=== PATIENT | female | born 1970 | race Hispanic/Latino ===

== ENCOUNTER 2017-11-09 22:50 | Emergency (ER) | payer MEDICAID, OTHER ==
[2017-11-09] MEDS ORDERED: IPRATROPIUM/ALBUTEROL SULFATE 3 ML SOLUTION IH ONE (23:03)
[2017-11-09] MEDS ORDERED: ALBUTEROL SULFATE 0.083% 2.5 MG/3 ML INH IH ONE (23:10)
[2017-11-09] MEDS ORDERED: METHYLPREDNISOLONE SOD SUCC 125MG/2ML VIAL ONE (23:16)
[2017-11-09] MEDS ORDERED: MAGNESIUM HYDROXIDE 30 ML/UDCUP ONE (23:17)
[2017-11-09] MEDS ORDERED: LIDOCAINE HCL 2% VISCOUS 15 ML UDCUP ONE (23:17)
[2017-11-09] MEDS ORDERED: ONDANSETRON ODT 4 MG TAB ONE (23:34)
[2017-11-09 23:42] LABS: BASOPHILS % (AUTO) 1.1 % (0.0-5.0); EOSINOPHILS % (AUTO) 3.8 % (0.0-8.0); HEMATOCRIT 40.7 % (36-48); LYMPHOCYTES % (AUTO) 32.5 % (21.0-51.0); MEAN CORPUSCULAR HEMOGLOBIN 23.9 pg (27.0-33.0); MEAN CORPUSCULAR HGB CONC 31.8 g/dL (32.0-36.0); MONOCYTES % (AUTO) 10.1 % (3.0-13.0); NEUTROPHILS % (AUTO) 52.5 % (40.0-77.0); NUCLEATED RED BLOOD CELLS 0.1 % (0.0-0.19); PLATELET COUNT (AUTO) 384 K/uL (130-400); RED BLOOD CELL COUNT(AUTO) 5.42 MIL/uL (4.00-5.50); RED CELL DISTRIBUTION WIDTH 22.5 % (11.0-15.5); WHITE BLOOD COUNT (AUTO) 8.8 K/uL (4.8-10.8)
[2017-11-10 00:18] LABS: ALBUMIN 3.1 g/dL (3.5-5.0); BILIRUBIN,TOTAL 0.2 mg/dL (0.2-1.0)
[2017-11-10] MEDS ORDERED: POTASSIUM BICARB/CIT AC 25 MEQ TABLET.EFF ONE (00:32)
== END 2017-11-10 01:00 | disposition home or self-care (01) ==
LOC: EDH 22:50
DX: J45.909 Unspecified asthma, uncomplicated (principal); K21.9 Gastro-esophageal reflux disease without esophagitis; K29.70 Gastritis, unspecified, without bleeding; Z72.0 Tobacco use
CPT/HCPCS: 36415; 71045; 80053; 85025; 93005; 94640 ×2; 96374; 99285; J2930

== ENCOUNTER 2018-08-19 14:51 | Emergency (ER) | payer OTHER | END 2018-08-19 15:23 | disposition left against medical advice (07) | LOC: EDH 14:51 | DX: R10.9 Unspecified abdominal pain (principal); Z53.21 Procedure and treatment not carried out due to patient leaving prior to being seen by health care provider; J45.909 Unspecified asthma, uncomplicated; Z72.0 Tobacco use ==

== ENCOUNTER 2018-08-29 18:08 | Emergency (ER) | payer OTHER ==
[~2018-08-29] VITALS: Ht 152.4 cm; Wt 99.8 kg
[2018-08-29] MEDS ORDERED: IPRATROPIUM/ALBUTEROL SULFATE 3 ML SOLUTION IH ONE ×2 (18:20→19:46)
[2018-08-29] MEDS ORDERED: METHYLPREDNISOLONE SOD SUCC 125MG/2ML VIAL ONE (18:44)
[2018-08-29 18:45] LABS: BASOPHILS % (AUTO) 0.2 % (0.0-5.0); LYMPHOCYTES % (AUTO) 3.6 % (21.0-51.0); MEAN CORPUSCULAR HEMOGLOBIN 26.3 pg (27.0-33.0); MEAN CORPUSCULAR HGB CONC 32.3 g/dL (32.0-36.0); MEAN CORPUSCULAR VOLUME 81.3 fL (79-99); MONOCYTES % (AUTO) 4.5 % (3.0-13.0); NEUTROPHILS % (AUTO) 91.7 % (40.0-77.0); PLATELET COUNT (AUTO) 260 K/uL (130-400); RED BLOOD CELL COUNT(AUTO) 4.92 MIL/uL (4.00-5.50); RED CELL DISTRIBUTION WIDTH 18.8 % (11.0-15.5); WHITE BLOOD COUNT (AUTO) 18.8 K/uL (4.8-10.8)
[2018-08-29] MEDS ORDERED: MAGNESIUM 2GM PREMIX 50ML 50 ML IV ONE (18:45)
[2018-08-29 18:57] LABS: CREATININE 1.3 mg/dL (0.5-1.5); POTASSIUM 3.9 mmol/L (3.5-5.1)
[2018-08-29 19:01] LABS: BILIRUBIN,TOTAL 0.1 mg/dL (0.2-1.0); TOTAL PROTEIN, SERUM 6.5 g/dL (6.0-8.3)
[2018-08-29] MEDS ORDERED: TERBUTALINE SULFATE VIAL 1MG/ML SQ SCH (19:30)
[2018-08-29] MEDS ORDERED: CEFTRIAXONE SODIUM 1 GM ONE (20:08)
== END 2018-08-29 21:41 | disposition home or self-care (01) ==
LOC: EDH 18:08
DX: J45.901 Unspecified asthma with (acute) exacerbation (principal); Z72.0 Tobacco use
CPT/HCPCS: 36415; 71045; 80053; 83735; 85025; 94640 ×2; 96365; 96366; 96372; 96375; 99284; J0696; J2930; J3105; J3475

== ENCOUNTER 2018-10-01 19:14 | Emergency (ER) | payer OTHER ==
[2018-10-01 19:43] LABS: BASOPHILS % (AUTO) 0.7 % (0.0-5.0); EOSINOPHILS % (AUTO) 1.2 % (0.0-8.0); HEMATOCRIT 40.5 % (36-48); LYMPHOCYTES % (AUTO) 17.1 % (21.0-51.0); MEAN CORPUSCULAR HGB CONC 31.9 g/dL (32.0-36.0); MEAN CORPUSCULAR VOLUME 81.4 fL (79-99); MONOCYTES % (AUTO) 5.1 % (3.0-13.0); NEUTROPHILS % (AUTO) 75.9 % (40.0-77.0); PLATELET COUNT (AUTO) 301 K/uL (130-400); RED BLOOD CELL COUNT(AUTO) 4.97 MIL/uL (4.00-5.50); WHITE BLOOD COUNT (AUTO) 17.7 K/uL (4.8-10.8)
[2018-10-01 19:51] LABS: CARBON DIOXIDE 25 mmol/L (21-32); CHLORIDE 103 mmol/L (101-111); CREATININE 0.9 mg/dL (0.5-1.5); GLOMERULAR FILTR. RATE CALC 72 mL/min (>60); GLUCOSE,RANDOM 140 mg/dL (70-105); POTASSIUM 3.4 mmol/L (3.5-5.1); SODIUM SERUM 138 mmol/L (136-145); UREA NITROGEN, BLOOD 12 mg/dL (7-18)
[2018-10-01 19:57] LABS: INR 0.96 (0.85-1.15); PARTIAL THROMBOPLASTIN TIME 23.8 SEC (26.3-35.5); PROTHROMBIN TIME 10.1 SEC (9.6-11.6)
[2018-10-01] MEDS ORDERED: IPRATROPIUM/ALBUTEROL SULFATE 3 ML SOLUTION IH ONE (19:59)
[2018-10-01 20:02] LABS: ALANINE AMINOTRANSFERASE 28 U/L (12-78); ALBUMIN 3.1 g/dL (3.5-5.0); ASPARTATE AMINOTRANSFERASE 24 U/L (10-37); BILIRUBIN,TOTAL 0.3 mg/dL (0.2-1.0); CREATINE KINASE, TOTAL 131 U/L (21-232); MYOGLOBIN 35 ng/mL (10-92); TOTAL PROTEIN, SERUM 6.8 g/dL (6.0-8.3); TROPONIN I < 0.04 ng/mL (0.00-0.06)
[2018-10-01 20:12] LABS: RAPID GROUP A STREP NEGATIVE (NEGATIVE)
[2018-10-01 20:44] LABS: APPEARANCE,URINE Cloudy (CLEAR); BILIRUBIN,URINE Negative (NEGATIVE); COLOR,URINE Yellow (YELLOW); GLUCOSE, URINE (UA) Negative (NEGATIVE); KETONES,URINE Negative (NEGATIVE); LEUKOCYTE ESTERASE ,URINE Large (NEGATIVE); NITRATE,URINE Positive (NEGATIVE); OCCULT BLOOD,URINE Trace (NEGATIVE); PH,URINE 7.5 (5.0-8.0); PROTEIN,URINE Negative (NEGATIVE)
[2018-10-01 20:52] LABS: BACTERIA,URINE Few /HPF (None Seen); MUCUS,URINE Rare LPF (None Seen); SQUAMOUS EPITHELIAL CELL,UR Few /HPF (0-2)
[2018-10-01 20:55] LABS: AMORPHOUS SEDIMENT,UR Rare /LPF (None Seen)
[2018-10-01] MEDS ORDERED: KETOROLAC TROMETHAMINE 30MG/ML ONE (21:02)
[2018-10-01] MEDS ORDERED: ONDANSETRON HCL 4 MG/2 ML VIAL ONE (22:50)
[2018-10-01] MEDS ORDERED: CEFTRIAXONE SODIUM 1 GM ONE (23:02)
[2018-10-01] MEDS ORDERED: MAG HYDROX/AL HYDROX/SIMETH ES 30 ML SUSP UDCUP ONE (23:03)
[2018-10-01] MEDS ORDERED: PANTOPRAZOLE SODIUM 40 MG TABLET.DR PO ONE (23:03)
[2018-10-01] MEDS ORDERED: LIDOCAINE HCL 2% VISCOUS 15 ML UDCUP ONE (23:03)
== END 2018-10-01 23:53 | disposition home or self-care (01) ==
LOC: EDH 19:14
DX: N39.0 Urinary tract infection, site not specified (principal); J45.901 Unspecified asthma with (acute) exacerbation; Z72.0 Tobacco use; Z98.890 Other specified postprocedural states
CPT/HCPCS: 36415; 71045; 74176; 80053; 81001; 82550; 83605 ×2; 83874; 84484; 85025; 85610; 85730; 87040 ×2; 87088; 87804 ×2; 87880; 93005; 94640; 96361 ×2; 96374; 96375; 99285; J0696; J1885; J2405

== ENCOUNTER 2018-11-20 21:57 | Emergency (ER) | payer MEDICAID ==
[2018-11-20] MEDS ORDERED: METHYLPREDNISOLONE SOD SUCC 125MG/2ML VIAL ONE (22:14)
[2018-11-20] MEDS ORDERED: IPRATROPIUM/ALBUTEROL SULFATE 3 ML SOLUTION IH ONE (22:16)
[2018-11-20 22:29] LABS: APPEARANCE,URINE Clear (CLEAR); BILIRUBIN,URINE Negative (NEGATIVE); COLOR,URINE Yellow (YELLOW); GLUCOSE, URINE (UA) Negative (NEGATIVE); KETONES,URINE Negative (NEGATIVE); LEUKOCYTE ESTERASE ,URINE Negative (NEGATIVE); NITRATE,URINE Positive (NEGATIVE); OCCULT BLOOD,URINE Moderate (NEGATIVE); PROTEIN,URINE Negative (NEGATIVE); UROBILINOGEN,URINE 0.2 mg/dL (0.2-1.0)
[2018-11-20] MEDS ORDERED: ONDANSETRON HCL 4 MG/2 ML VIAL ONE (22:35)
[2018-11-20 22:39] LABS: BACTERIA,URINE Many /HPF (None Seen); MUCUS,URINE Few LPF (None Seen); SQUAMOUS EPITHELIAL CELL,UR Moderate /HPF (0-2); WBC,URINE 0-1 /HPF (0-1)
[2018-11-20 22:43] LABS: BASOPHILS % (AUTO) 0.3 % (0.0-5.0); EOSINOPHILS % (AUTO) 0.1 % (0.0-8.0); HEMATOCRIT 44.3 % (36-48); LYMPHOCYTES % (AUTO) 4.5 % (21.0-51.0); MEAN CORPUSCULAR HEMOGLOBIN 25.9 pg (27.0-33.0); MEAN CORPUSCULAR HGB CONC 31.6 g/dL (32.0-36.0); MEAN CORPUSCULAR VOLUME 82.1 fL (79-99); MONOCYTES % (AUTO) 5.7 % (3.0-13.0); NEUTROPHILS % (AUTO) 89.4 % (40.0-77.0); PLATELET COUNT (AUTO) 306 K/uL (130-400); RED CELL DISTRIBUTION WIDTH 18.6 % (11.0-15.5); WHITE BLOOD COUNT (AUTO) 25.2 K/uL (4.8-10.8)
[2018-11-20 22:53] LABS: CREATININE 0.9 mg/dL (0.5-1.5); POTASSIUM 3.9 mmol/L (3.5-5.1)
[2018-11-20 22:57] LABS: ALBUMIN 3.3 g/dL (3.5-5.0); BILIRUBIN,TOTAL 0.3 mg/dL (0.2-1.0); TOTAL PROTEIN, SERUM 7.4 g/dL (6.0-8.3)
[2018-11-21] MEDS ORDERED: LEVOFLOXACIN 500 MG/D5W 100 ML 100 ML ONE (00:09)
[2018-11-21] MEDS ORDERED: KETOROLAC TROMETHAMINE 30MG/ML ONE (00:10)
[2018-11-21] MEDS ORDERED: CEFTRIAXONE SODIUM 1 GM ONE (00:10)
== END 2018-11-21 01:34 | disposition home or self-care (01) ==
LOC: EDH 21:57
DX: J45.21 Mild intermittent asthma with (acute) exacerbation (principal); E11.9 Type 2 diabetes mellitus without complications; N39.0 Urinary tract infection, site not specified; Z98.890 Other specified postprocedural states
CPT/HCPCS: 36415; 80053; 81001; 81025; 82150; 82270; 83630; 83690; 85025; 87046; 87077; 87088; 87177; 87186; 94640; 96365; 96375; 99284; J0696; J1885; J1956; J2405; J2930

== ENCOUNTER 2019-06-27 16:28 | Emergency (ER) | payer MEDICAID ==
[2019-06-27 18:05] LABS: BASOPHILS % (AUTO) 0.4 % (0.0-5.0); EOSINOPHILS % (AUTO) 0.9 % (0.0-8.0); HEMATOCRIT 40.5 % (36-48); LYMPHOCYTES % (AUTO) 10.3 % (21.0-51.0); MEAN CORPUSCULAR HEMOGLOBIN 25.1 pg (27.0-33.0); MEAN CORPUSCULAR HGB CONC 30.1 g/dL (32.0-36.0); MEAN CORPUSCULAR VOLUME 83.2 fL (79-99); NEUTROPHILS % (AUTO) 83.7 % (40.0-77.0); PLATELET COUNT (AUTO) 329 K/uL (130-400); RED BLOOD CELL COUNT(AUTO) 4.87 MIL/uL (4.00-5.50); RED CELL DISTRIBUTION WIDTH 18.8 % (11.0-15.5); WHITE BLOOD COUNT (AUTO) 16.2 K/uL (4.8-10.8)
[2019-06-27 18:09] LABS: APPEARANCE,URINE Cloudy (CLEAR); BILIRUBIN,URINE Negative (NEGATIVE); COLOR,URINE Yellow (YELLOW); GLUCOSE, URINE (UA) Negative (NEGATIVE); KETONES,URINE Trace mg/dL (NEGATIVE); LEUKOCYTE ESTERASE ,URINE Small (NEGATIVE); NITRATE,URINE Negative (NEGATIVE); OCCULT BLOOD,URINE Negative (NEGATIVE); PROTEIN,URINE Negative (NEGATIVE)
[2019-06-27 18:12] LABS: CREATININE 1.1 mg/dL (0.5-1.5); HCG,QUAL RESULT NEGATIVE (NEGATIVE); POTASSIUM 3.7 mmol/L (3.5-5.1)
[2019-06-27 18:15] LABS: INR 0.93 (0.85-1.15); PARTIAL THROMBOPLASTIN TIME 24.7 SEC (26.3-35.5); PROTHROMBIN TIME 9.8 SEC (9.6-11.6)
[2019-06-27 18:17] LABS: BILIRUBIN,TOTAL 0.2 mg/dL (0.2-1.0); TOTAL PROTEIN, SERUM 6.7 g/dL (6.0-8.3)
[2019-06-27 18:25] LABS: BACTERIA,URINE Few /HPF (None Seen)
[2019-06-27 18:26] LABS: MUCUS,URINE Few LPF (None Seen); SQUAMOUS EPITHELIAL CELL,UR Moderate /HPF (0-2)
[2019-06-27] MEDS ORDERED: CEFTRIAXONE SODIUM 1 GM ONE (19:12)
[2019-06-27] MEDS ORDERED: SODIUM CHLORIDE 0.9% 1000ML 1,000 ML IV ONE (19:12)
== END 2019-06-27 19:49 | disposition home or self-care (01) ==
LOC: EDH 16:28
DX: N39.0 Urinary tract infection, site not specified (principal); E86.0 Dehydration; J45.909 Unspecified asthma, uncomplicated; E11.9 Type 2 diabetes mellitus without complications; F41.9 Anxiety disorder, unspecified; Z72.0 Tobacco use
CPT/HCPCS: 36415; 71046; 80053; 81001; 81025; 82948 ×2; 85025; 85610; 85730; 87077; 87088; 87186; 87804 ×2; 96361; 96374; 99285; J0696; J7030

== ENCOUNTER → 2019-07-01 | Outpatient (CLI) | payer OTHER | END | disposition home or self-care (01) | LOC: OIH 14:59 | PROVIDERS: ATTEND Internal Medicine | DX: T14.8XXA Other injury of unspecified body region, initial encounter (principal); X58.XXXA Exposure to other specified factors, initial encounter; Y93.89 Activity, other specified; Y92.89 Other specified places as the place of occurrence of the external cause; Y99.8 Other external cause status | CPT/HCPCS: 72100 ==

== ENCOUNTER 2021-04-12 21:11 | Emergency (ER) | payer MEDICAID, OTHER ==
[~2021-04-12] VITALS: Ht 152.4 cm; Wt 105.7 kg
[2021-04-12 21:13] VITALS: BP 110/71
== END 2021-04-12 22:38 | disposition left against medical advice (07) ==
LOC: EDH 21:11
DX: M54.9 Dorsalgia, unspecified (principal); R06.02 Shortness of breath; R42 Dizziness and giddiness; Z53.21 Procedure and treatment not carried out due to patient leaving prior to being seen by health care provider

== ENCOUNTER 2022-03-12 00:36 | Inpatient (IN) | payer MEDICAID ==
[~2022-03-12] VITALS: Ht 152.4 cm; Wt 116.1 kg
[~2022-03-12 00:36] MED LIST: POTA20TA10 PO
[2022-03-12 01:04] LABS: APPEARANCE,URINE CLEAR (CLEAR); BILIRUBIN,URINE NEGATIVE (NEGATIVE); COLOR,URINE LIGHT-YELLOW (YELLOW); GLUCOSE, URINE (UA) NEGATIVE (NEGATIVE); KETONES,URINE NEGATIVE (NEGATIVE); LEUKOCYTE ESTERASE ,URINE NEGATIVE Leu/uL (NEGATIVE); NITRATE,URINE NEGATIVE (NEGATIVE); OCCULT BLOOD,URINE NEGATIVE (NEGATIVE); PH,URINE 6.5 (5.0-8.0); PROTEIN,URINE NEGATIVE (NEGATIVE); UROBILINOGEN,URINE 0.2 mg/dL (0.2-1.0)
[2022-03-12] MEDS ORDERED: IPRATROPIUM/ALBUTEROL SULFATE 3 ML SOLUTION IH ONE (01:30)
[2022-03-12 01:46] LABS: BASOPHILS % (AUTO) 0.3 % (0.0-5.0); EOSINOPHILS % (AUTO) 0.2 % (0.0-8.0); HEMATOCRIT 45.5 % (36-48); LYMPHOCYTES % (AUTO) 23.1 % (21.0-51.0); MEAN CORPUSCULAR HEMOGLOBIN 29.3 pg (27.0-33.0); MEAN CORPUSCULAR HGB CONC 32.5 g/dL (32.0-36.0); MEAN CORPUSCULAR VOLUME 90.1 fL (79-99); MONOCYTES % (AUTO) 7.8 % (3.0-13.0); NEUTROPHILS % (AUTO) 66.9 % (40.0-77.0); PLATELET COUNT (AUTO) 246 K/uL (130-400); RED BLOOD CELL COUNT(AUTO) 5.05 MIL/uL (4.00-5.50); RED CELL DISTRIBUTION WIDTH 17.6 % (11.0-15.5); WHITE BLOOD COUNT (AUTO) 17.7 K/uL (4.8-10.8)
[2022-03-12 02:01] LABS: CREATININE 1.1 mg/dL (0.5-1.5); POTASSIUM 3.6 mmol/L (3.5-5.1)
[2022-03-12 02:09] LABS: ALBUMIN 3.1 g/dL (3.5-5.0); TOTAL PROTEIN, SERUM 6.6 g/dL (6.0-8.3)
[2022-03-12] MEDS ORDERED: ALBUTEROL 0.083% 2.5 MG/3 ML INH IH ONE (02:30)
[2022-03-12] MEDS ORDERED: 0.9%NACL 1000ML 1,000 ML IV ONE (05:00)
[2022-03-12] MEDS ORDERED: NITROGLYCERIN 0.4 MG SL TAB SL PRN (05:00)
[2022-03-12] MEDS ORDERED: FAMOTIDINE 20MG VIAL IV ONE (05:30)
[2022-03-12] MEDS ORDERED: CEFTRIAXONE 1G VIAL IVP SCH (05:30)
[2022-03-12] MEDS ORDERED: SOLU-MEDROL 125MG VIAL IVP ONE (05:30)
[2022-03-12] MEDS ORDERED: ASPIRIN 81MG CHEW TAB PO ONE (05:30)
[2022-03-12] MEDS ORDERED: MAG/ALUM/SIMETH 30 ML UDCUP PO ONE (05:30)
[2022-03-12] MEDS: IPRATROPIUM/ALBUTEROL SULFATE 3 ML SOLUTION IH SCH ×2 (06:43→11:28)
[2022-03-12] MEDS ORDERED: CLOPIDOGREL 75MG TAB PO SCH (09:00)
[2022-03-12] MEDS ORDERED: ASPIRIN 81 MG EC TAB PO SCH (09:00)
[2022-03-12] MEDS ORDERED: SOLU-MEDROL 40MG VIAL IVP SCH (09:00)
[2022-03-12] MEDS ORDERED: ENOXAPARIN SODIUM 120 MG/0.8ML SQ SCH (09:00)
[2022-03-12 13:18] VITALS: BP 117/77
== END 2022-03-12 14:05 | disposition home or self-care (01) | DRG 140 ==
LOC: EDH 00:36 → EDHIP 00:37
PROVIDERS: ADMIT Internal Medicine; ATTEND Internal Medicine
DX: J44.0 Chronic obstructive pulmonary disease with (acute) lower respiratory infection (principal); J18.9 Pneumonia, unspecified organism; Z20.822 Contact with and (suspected) exposure to COVID-19; J44.1 Chronic obstructive pulmonary disease with (acute) exacerbation; F41.1 Generalized anxiety disorder; F43.10 Post-traumatic stress disorder, unspecified; Z82.49 Family history of ischemic heart disease and other diseases of the circulatory system; Z83.3 Family history of diabetes mellitus
CPT/HCPCS: 36415; 71045; 80053; 81003; 82550; 83605; 83874; 83880; 84484; 85025; 87040; 87635; 87804; 93005; 94640; 94644; 94664; C9803; G0378; J0696; J1650; J2920; J2930; J3490

== ENCOUNTER 2023-05-09 13:31 | Emergency (ER) | payer BC, MEDICAID ==
[~2023-05-09] VITALS: Ht 152.4 cm; Wt 99.8 kg
[2023-05-09 14:05] VITALS: BP 101/71; PULSE 98; RESP 18; O2SAT 98
[2023-05-09 14:11] LABS: HEMATOCRIT 50.1 % (36-48); MEAN CORPUSCULAR HEMOGLOBIN 31.8 pg (27.0-33.0); MEAN CORPUSCULAR HGB CONC 34.3 g/dL (32.0-36.0); MEAN CORPUSCULAR VOLUME 92.6 fL (79-99); RED BLOOD CELL COUNT(AUTO) 5.41 MIL/uL (4.00-5.50); RED CELL DISTRIBUTION WIDTH 14.2 % (11.0-15.5); WHITE BLOOD COUNT (AUTO) 10.6 K/uL (4.8-10.8)
[2023-05-09 14:17] LABS: CREATININE 1.2 mg/dL (0.5-1.5); POTASSIUM 3.2 mmol/L (3.5-5.1)
[2023-05-09 14:24] LABS: ALBUMIN 3.4 g/dL (3.5-5.0); BILIRUBIN,TOTAL 0.4 mg/dL (0.2-1.0); TOTAL PROTEIN, SERUM 7.1 g/dL (6.0-8.3)
[2023-05-09 14:28] LABS: APPEARANCE,URINE TURBID (CLEAR); BILIRUBIN,URINE NEGATIVE (NEGATIVE); COLOR,URINE DARK-BROWN (YELLOW); GLUCOSE, URINE (UA) NEGATIVE (NEGATIVE); KETONES,URINE NEGATIVE (NEGATIVE); LEUKOCYTE ESTERASE ,URINE 500 Leu/uL (NEGATIVE); NITRATE,URINE 2+ (NEGATIVE); OCCULT BLOOD,URINE LARGE (NEGATIVE); PH,URINE 5.5 (5.0-8.0); PROTEIN,URINE 100 mg/dL (NEGATIVE)
[2023-05-09 14:29] LABS: ADD UA MICROSCOPIC YES; HCG,QUALITATIVE URINE NEGATIVE (NEGATIVE)
[2023-05-09 14:30] LABS: BACTERIA,URINE FEW /HPF (None Seen); MUCUS,URINE RARE LPF (None Seen); RBC,URINE TNTC /HPF (0-1)
[2023-05-09] MEDS ORDERED: 0.9% NACL 500ML IV.SOLN 500 ML IV ONE (15:00)
[2023-05-09] MEDS ORDERED: KCL 20 MEQ ERTAB PO ONE (15:00)
[2023-05-09] MEDS ORDERED: CEFTRIAXONE 1G VIAL IVPB ONE (15:00)
[2023-05-09] MEDS ORDERED: NITR100C PO (16:39)
== END 2023-05-09 16:53 | disposition home or self-care (01) ==
LOC: EDH 13:31
DX: N39.0 Urinary tract infection, site not specified (principal); N93.9 Abnormal uterine and vaginal bleeding, unspecified; J44.9 Chronic obstructive pulmonary disease, unspecified; F31.9 Bipolar disorder, unspecified; J45.909 Unspecified asthma, uncomplicated; F17.200 Nicotine dependence, unspecified, uncomplicated
CPT/HCPCS: 99284; 96374; 76856; 80053; 85027; 85018; 86850; 86900; 86901; 87077; 87088; 87186; 81001; 81025; 36415; J0696

== ENCOUNTER 2023-06-19 01:42 | Emergency (ER) | payer BC ==
[~2023-06-19] VITALS: Ht 152.4 cm; Wt 99.8 kg
[~2023-06-19 01:42] MED LIST changes: +NITR100C PO; -POTA20TA10 PO
[2023-06-19] MEDS ORDERED: IPRATROPIUM/ALBUTEROL SULFATE 3 ML SOLUTION IH ONE (02:00)
[2023-06-19 02:13] LABS: BASOPHILS # (AUTO) 0.04 K/uL (0.00-0.20); BASOPHILS % (AUTO) 0.3 % (0.0-5.0); EOSINOPHILS # (AUTO) 0.09 K/uL (0.00-0.70); EOSINOPHILS % (AUTO) 0.7 % (0.0-8.0); HEMATOCRIT 48.1 % (36-48); IMMATURE GRANULOCYTE ABSOLUTE 0.04 K/uL (0-1); LYMPHOCYTES # (AUTO) 4.1 K/uL (1.0-4.8); LYMPHOCYTES % (AUTO) 31.8 % (21.0-51.0); MEAN CORPUSCULAR HEMOGLOBIN 31.3 pg (27.0-33.0); MEAN CORPUSCULAR HGB CONC 34.7 g/dL (32.0-36.0); MEAN CORPUSCULAR VOLUME 90.1 fL (79-99); MONOCYTES # (AUTO) 1.4 K/uL (0.1-1.0); MONOCYTES % (AUTO) 10.8 % (3.0-13.0); NEUTROPHILS # (AUTO) 7.2 K/uL (1.8-7.7); NEUTROPHILS % (AUTO) 56.1 % (40.0-77.0); PLATELET COUNT (AUTO) 245 K/uL (130-400); RED BLOOD CELL COUNT(AUTO) 5.34 MIL/uL (4.00-5.50); RED CELL DISTRIBUTION WIDTH 14.1 % (11.0-15.5); WHITE BLOOD COUNT (AUTO) 12.8 K/uL (4.8-10.8)
[2023-06-19 02:15] VITALS: PULSE 80; RESP 18
[2023-06-19 02:29] LABS: ALBUMIN 3.3 g/dL (3.5-5.0); BILIRUBIN,TOTAL 0.3 mg/dL (0.2-1.0); TOTAL PROTEIN, SERUM 7.1 g/dL (6.0-8.3)
[2023-06-19 02:39] LABS: POTASSIUM 2.8 mmol/L (3.5-5.1)
[2023-06-19] MEDS ORDERED: POTASSIUM BICARB/CIT AC 25 MEQ TABLET.EFF PO ONE (03:00)
[2023-06-19 03:24] VITALS: BP 109/73; PULSE 85; RESP 20; O2SAT 98
== END 2023-06-19 03:29 | disposition home or self-care (01) ==
LOC: EDH 01:42
DX: R06.02 Shortness of breath (principal); Z53.21 Procedure and treatment not carried out due to patient leaving prior to being seen by health care provider
CPT/HCPCS: 36415; 80053; 82550; 84484; 85025; 94640; 99281

== ENCOUNTER → 2024-01-17 | Outpatient (CLI) | payer BC | END | disposition home or self-care (01) | LOC: RAH 11:48 | PROVIDERS: ATTEND Internal Medicine | DX: Z12.31 Encounter for screening mammogram for malignant neoplasm of breast (principal); R92.333 Mammographic heterogeneous density, bilateral breasts | CPT/HCPCS: 77063; 77067 ==

== ENCOUNTER 2024-11-22 18:57 | Emergency (ER) | payer BC, OTHER ==
[~2024-11-22] VITALS: Ht 152.4 cm; Wt 77.6 kg
[2024-11-22 18:58] VITALS: TEMP 99.3
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
--- NOTE | 2024-11-22 19:20 | NUR ---
BEDSIDE GLUCOSE 102. ER NNEKA MADE AWARE.
[2024-11-22] MEDS: CYCLOBENZAPRINE HCL 10 MG TABLET PO SCH (19:36)
--- NOTE | 2024-11-22 19:41 | HMCIMG ---
Chest pain 03/12/2022 HISTORY: No additional history given. COMPARISON: None FINDINGS: A frontal projection of the chest was obtained. No acute pulmonary infiltrates is seen. The heart is normal in size. Prominent interstitial markings are seen. Mild degenerative changes are seen. No evidence of aortic calcification is seen. IMPRESSION: 1. No acute pulmonary infiltrate is seen.
[2024-11-22] MEDS: ketOROlac 60 MG VIAL (30MG/ML) IM SCH (19:43)
[2024-11-22 20:14] VITALS: BP 101/72; PULSE 99; RESP 18; O2SAT 95
[2024-11-22] MEDS ORDERED: CYCL-309 PO (20:27)
[2024-11-22] MEDS ORDERED: IBUP-2077 PO (20:27)
== END 2024-11-22 20:58 | disposition home or self-care (01) ==
LOC: EDH 18:57
DX: S20.212A Contusion of left front wall of thorax, initial encounter (principal); E11.40 Type 2 diabetes mellitus with diabetic neuropathy, unspecified; F41.9 Anxiety disorder, unspecified; J45.909 Unspecified asthma, uncomplicated; F32.A Depression, unspecified; I10 Essential (primary) hypertension; E78.00 Pure hypercholesterolemia, unspecified; Z98.890 Other specified postprocedural states; V89.2XXA Person injured in unspecified motor-vehicle accident, traffic, initial encounter; Y93.89 Activity, other specified; Y92.89 Other specified places as the place of occurrence of the external cause; Y99.8 Other external cause status
CPT/HCPCS: 99283; 71045; 82948; 96372; J1885